=== PATIENT | female | born 1985 | race Caucasian/White ===

== ENCOUNTER 2018-01-13 09:38 | Inpatient (IN) ==
--- NOTE | 2018-01-13 09:52 | Emergency Department Note ---
Disposition Clinical Impression: Suicidal ideation Disposition: Admitted As Inpatient Condition: Good General Adult HPI - General Stated complaint: anxiety Time Seen by Provider: 01/13/18 09:40 Source: patient Mode of arrival: EMS Limitations: no limitations Nursing Notes Reviewed: Yes Vital Signs Reviewed: Yes - History of Present Illness HPI Narrative: 32-year-old female with history of PTSD, anxiety and depression presents for evaluation of suicidal ideation. Patient states she has felt this way over the past couple days. Notes that she does have a plan she wants to shoot herself. Does have guns at home. Does have family at home. Patient states that she has been on depressant medications but she feels that she does want to kill her self. States she has had homicidal ideations in the past as well. The patient has no prior attempts. Patient denies any drugs or alcohol. Patient denies any delusions or hallucinations. Denies any chest pain, fevers, shortness of breath, abdominal pain or nausea vomiting. Patient denies possibility of being . - Related Data Home Medications Medication Instructions Recorded Confirmed FLUoxetine HCl [Fluoxetine HCl] 80 mg PO DAILY 01/05/17 01/13/18 Promethazine [Phenergan] 25 mg PO Q8HR PRN 08/31/17 01/13/18 SUMAtriptan Succinate [Imitrex] 4 mg SQ AD PRN 08/31/17 01/13/18 Naproxen Sodium [Aleve] 440 mg PO DAILY 01/13/18 01/13/18 lamoTRIgine [Lamictal] 50 mg PO DAILY 01/13/18 01/13/18 Allergies Allergy/AdvReac Type Severity Reaction Status Date / Time Amoxicillin [From Augmentin] AdvReac Rash Verified 01/13/18 14:07 clavulanic acid AdvReac Rash Verified 01/13/18 14:07 [From Augmentin] codeine AdvReac Vomiting Verified 01/13/18 14:07 All systems ED: reviewed and negative except as stated. 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 Absent: respiratory distress - Cardiovascular Cardiovascular exam: Present: regular rate, normal rhythm - Abdominal Exam Abdominal exam: Present: soft, Non-Tender - Extremities Exam Extremities exam: Present: normal inspection - Expanded Lower Extremity Exam Neurovascular/Tendon exam: Present: normal capillary refill - Back Exam Back exam: Present: normal inspection - Neurological Exam Neurological exam: Present: alert, oriented X3, CN II-XII intact - Skin Skin exam: Present: warm, dry, intact, normal color Course Course Narrative: Patient seen and examined. Patient will get medically screened and evaluated by psychiatry. Disposition pending. Vital Signs Temperature 98.6 F 01/13/18 09:47 Pulse Rate 78 01/13/18 09:47 Respiratory Rate 16 01/13/18 09:47 Blood Pressure 135/104 01/13/18 09:47 O2 Sat by Pulse Oximetry 98 01/13/18 09:47 Temperature 98.6 F 01/13/18 14:50 Pulse Rate 78 01/13/18 14:50 Respiratory Rate 16 01/13/18 14:50 Blood Pressure 120/87 01/13/18 14:50 O2 Sat by Pulse Oximetry 95 01/13/18 12:13 Oxygen Delivery Oxygen Delivery Room Air Medical Decision Making - Lab Data Result diagrams: 01/13/18 10:09 01/13/18 10:09 Lab Results 01/13/18 01/13/18 01/13/18 Range/Units 09:58 09:58 09:58 WBC (4.3-11.1) K/mcL RBC (3.82-4.97) M/mcL Hgb (11.5-15.4) g/dL Hct (35.3-44.9) % MCV (83.0-100.0) fL MCH (28.0-33.3) pg MCHC (31.6-35.5) g/dL RDW (11.5-14.5) % Plt Count (140-400) K/mcL MPV (9.4-12.4) fL Immature Gran % (0-4) % Seg Neutrophils % % Lymphocytes % % Monocytes % % Eosinophils % % Basophils % % Neutrophils # (1.6-8.9) K/mcL Lymphocytes # (0.6-4.6) K/mcL Monocytes # (0.0-1.3) K/mcL Eosinophils # (0.0-0.6) K/mcL Basophils # (0.0-0.2) K/mcL Sodium (136-145) mEq/L Potassium (3.5-5.1) mEq/L Chloride (98-107) mEq/L Carbon Dioxide (23-29) mEq/L BUN (6-20) mg/dL Creatinine (0.60-1.20) mg/dL Est GFR ( Amer) (> 60) Est GFR (Non-Af Amer) (> 60) BUN/Creatinine Ratio (6-26) Glucose (70-105) mg/dL Calculated Osmolality (280-300) Calcium (8.6-10.3) mg/dL Urine Color Yellow (Yellow) Urine Clarity Clear (Clear) Urine pH 7.5 (5.0-8.0) pH Units Ur Specific [place] 1.009 L (1.010-1.025) Urine Protein Negative (Neg-Trace) mg/dL Urine Glucose (UA) Normal (Normal) mg/dL Urine Ketones Negative (Negative) mg/dL Urine Blood Negative (Negative) Urine Nitrite Negative (Negative) Urine Bilirubin Negative (Negative) Urine Urobilinogen Normal (Normal) mg/dL Ur Leukocyte Esterase Negative (Negative) Urine Test Negative (Negative) Salicylates (15.0-30.0) mg/dL Urine Opiates Screen Negative (Qczqiw=435) ng/mL Acetaminophen (10-20) mcg/mL Ur Barbiturates Screen Negative (Llpkul=351) ng/mL Ur Phencyclidine Scrn Negative (Cutoff=25) ng/mL Ur Amphetamines Screen Negative (Qhwobp=0680) ng/mL U Benzodiazepines Scrn Negative (Owxcrk=358) ng/mL Urine Cocaine Screen Negative (Cutoff= 300) ng/mL U Marijuana (THC) Screen Negative (Cutoff = 50) ng/mL Ur Drug Screen Interp See Below Ethyl Alcohol (Less than 10) mg/dL 01/13/18 01/13/18 Range/Units 10:09 10:09 WBC 11.0 (4.3-11.1) K/mcL RBC 4.75 (3.82-4.97) M/mcL Hgb 14.1 (11.5-15.4) g/dL Hct 41.2 (35.3-44.9) % MCV 86.7 (83.0-100.0) fL MCH 29.7 (28.0-33.3) pg MCHC 34.2 (31.6-35.5) g/dL RDW 13.2 (11.5-14.5) % Plt Count 229 (140-400) K/mcL MPV 10.5 (9.4-12.4) fL Immature Gran % 0.2 (0-4) % Seg Neutrophils % 70.3 % Lymphocytes % 22.9 % Monocytes % 5.3 % Eosinophils % 0.8 % Basophils % 0.5 % Neutrophils # 7.7 (1.6-8.9) K/mcL Lymphocytes # 2.5 (0.6-4.6) K/mcL Monocytes # 0.6 (0.0-1.3) K/mcL Eosinophils # 0.1 (0.0-0.6) K/mcL Basophils # 0.1 (0.0-0.2) K/mcL Sodium 138 (136-145) mEq/L Potassium 3.9 (3.5-5.1) mEq/L Chloride 107 (98-107) mEq/L Carbon Dioxide 25 (23-29) mEq/L BUN 11 (6-20) mg/dL Creatinine 0.71 (0.60-1.20) mg/dL Est GFR ( Amer) > 60 (> 60) Est GFR (Non-Af Amer) > 60 (> 60) BUN/Creatinine Ratio 15 (6-26) Glucose 98 (70-105) mg/dL Calculated Osmolality 285 (280-300) Calcium 8.7 (8.6-10.3) mg/dL Urine Color (Yellow) Urine Clarity (Clear) Urine pH (5.0-8.0) pH Units Ur Specific [place] (1.010-1.025) Urine Protein (Neg-Trace) mg/dL Urine Glucose (UA) (Normal) mg/dL Urine Ketones (Negative) mg/dL Urine Blood (Negative) Urine Nitrite (Negative) Urine Bilirubin (Negative) Urine Urobilinogen (Normal) mg/dL Ur Leukocyte Esterase (Negative) Urine Test (Negative) Salicylates < 2.5 L (15.0-30.0) mg/dL Urine Opiates Screen (Cdqmtf=028) ng/mL Acetaminophen < 10 L (10-20) mcg/mL Ur Barbiturates Screen (Ipsosg=283) ng/mL Ur Phencyclidine Scrn (Cutoff=25) ng/mL Ur Amphetamines Screen (Pspalv=9600) ng/mL U Benzodiazepines Scrn (Zznzex=046) ng/mL Urine Cocaine Screen (Cutoff= 300) ng/mL U Marijuana (THC) Screen (Cutoff = 50) ng/mL Ur Drug Screen Interp Ethyl Alcohol < 10 (Less than 10) mg/dL Attestation Statement - Attestation Attestation: I, Osbaldo Bermudez DO, examined this patient [id number] and my medical decision-making was reviewed with Dr. Noel Villanueva, Resident Physician. I agree with the documented findings, disposition and treatment plan as described except to the extent set forth below. Please see my progress notes for details.
[2018-01-13 10:20] LABS: Basophils # 0.1 K/mcL (0.0-0.2); Basophils % 0.5 %; Eosinophils # 0.1 K/mcL (0.0-0.6); Eosinophils % 0.8 %; Hematocrit 41.2 % (35.3-44.9); Hemoglobin 14.1 g/dL (11.5-15.4); Immature Granulocytes % 0.2 % (0-4); Lymphocytes # 2.5 K/mcL (0.6-4.6); Lymphocytes % 22.9 %; Mean Corpuscular HGB Conc 34.2 g/dL (31.6-35.5); Mean Corpuscular Hemoglobin 29.7 pg (28.0-33.3); Mean Corpuscular Volume 86.7 fL (83.0-100.0); Mean Platelet Volume 10.5 fL (9.4-12.4); Monocytes # 0.6 K/mcL (0.0-1.3); Monocytes % 5.3 %; Neutrophils # 7.7 K/mcL (1.6-8.9); Platelet Count 229 K/mcL (140-400); Red Blood Count 4.75 M/mcL (3.82-4.97); Red Cell Distribution Width 13.2 % (11.5-14.5); Segmented Neutrophils % 70.3 %
[2018-01-13 10:23] LABS: Bilirubin,Urine Negative (Negative); Blood,Urine Negative (Negative); Clarity,Urine Clear (Clear); Color,Urine Yellow (Yellow); Glucose,Urine (UA) Normal (Normal); Ketones,Urine Negative (Negative); Leukocyte Esterase,Urine Negative (Negative); Nitrite,Urine Negative (Negative); PH,Urine 7.5 pH Units (5.0-8.0); Protein,Urine Negative (Neg-Trace); Specific Gravity,Urine 1.009 (1.010-1.025); Urobilinogen,Urine Normal (Normal)
--- NOTE | 2018-01-13 10:34 | Emergency Department Note ---
Disposition Clinical Impression: Suicidal ideation Disposition: Admitted As Inpatient Condition: Good Referrals: NONE,PCP [Primary Care Provider] - Forms: ED Satisfaction Letter Time of Disposition: 13:40 General Adult HPI - General Chief complaint: ED Psychiatric Symptoms Stated complaint: SI/depression Time Seen by Provider: 01/13/18 09:40 Source: patient Mode of arrival: EMS Limitations: no limitations - History of Present Illness Pain Scale: 6 - Related Data Home Medications Medication Instructions Recorded Confirmed LORazepam [Ativan] 1 mg PO BID PRN 06/05/16 08/31/17 FLUoxetine HCl [Fluoxetine HCl] 80 mg PO DAILY 01/05/17 08/31/17 ARIPiprazole [Abilify] 2 mg PO HS 07/22/17 08/31/17 Promethazine [Phenergan] 25 mg PO Q8HR 08/31/17 08/31/17 SUMAtriptan Succinate [Imitrex] 4 mg SQ DAILY PRN 08/31/17 08/31/17 Previous Rx's Medication Instructions Recorded Potassium Chloride [K-Tab ER] 8 meq PO BID #10 tablet.er 08/31/17 Allergies Allergy/AdvReac Type Severity Reaction Status Date / Time Amoxicillin [From Augmentin] AdvReac Rash Verified 08/31/17 19:40 clavulanic acid AdvReac Rash Verified 08/31/17 19:40 [From Augmentin] codeine AdvReac Vomiting Verified 08/31/17 19:40 Constitutional: Denies: fever Cardiovascular: Denies: chest pain Respiratory: Denies: cough Gastrointestinal: Denies: abdominal pain, nausea, vomiting Past Medical History - Past Medical History Medical history: Reports: asthma, migraine Surgical history: Reports: other Psychiatric history: Reports: anxiety, depression, PTSD CLAIMS COUNSEL history: Reports: bilateral tubal ligation - Social History Smoking Status: Current every day smoker Smokeless Tobacco Status: No Alcohol use: Reports: none Drug use: Reports: none Physical Exam - General Limitations: no limitations General appearance: alert, in no apparent distress Course Vital Signs Temperature 98.6 F 01/13/18 09:47 Pulse Rate 78 01/13/18 09:47 Respiratory Rate 16 01/13/18 09:47 Blood Pressure 135/104 01/13/18 09:47 O2 Sat by Pulse Oximetry 98 01/13/18 09:47 Temperature 98.3 F 01/13/18 12:13 Pulse Rate 61 01/13/18 12:13 Respiratory Rate 12 01/13/18 12:13 Blood Pressure 112/76 01/13/18 12:13 O2 Sat by Pulse Oximetry 95 01/13/18 12:13 Oxygen Delivery Oxygen Delivery Room Air Medical Decision Making - Lab Data Result diagrams: 01/13/18 10:09 01/13/18 10:09 Lab Results 01/13/18 01/13/18 01/13/18 Range/Units 09:58 09:58 09:58 WBC (4.3-11.1) K/mcL RBC (3.82-4.97) M/mcL Hgb (11.5-15.4) g/dL Hct (35.3-44.9) % MCV (83.0-100.0) fL MCH (28.0-33.3) pg MCHC (31.6-35.5) g/dL RDW (11.5-14.5) % Plt Count (140-400) K/mcL MPV (9.4-12.4) fL Immature Gran % (0-4) % Seg Neutrophils % % Lymphocytes % % Monocytes % % Eosinophils % % Basophils % % Neutrophils # (1.6-8.9) K/mcL Lymphocytes # (0.6-4.6) K/mcL Monocytes # (0.0-1.3) K/mcL Eosinophils # (0.0-0.6) K/mcL Basophils # (0.0-0.2) K/mcL Sodium (136-145) mEq/L Potassium (3.5-5.1) mEq/L Chloride (98-107) mEq/L Carbon Dioxide (23-29) mEq/L BUN (6-20) mg/dL Creatinine (0.60-1.20) mg/dL Est GFR ( Amer) (> 60) Est GFR (Non-Af Amer) (> 60) BUN/Creatinine Ratio (6-26) Glucose (70-105) mg/dL Calculated Osmolality (280-300) Calcium (8.6-10.3) mg/dL Urine Color Yellow (Yellow) Urine Clarity Clear (Clear) Urine pH 7.5 (5.0-8.0) pH Units Ur Specific [place] 1.009 L (1.010-1.025) Urine Protein Negative (Neg-Trace) mg/dL Urine Glucose (UA) Normal (Normal) mg/dL Urine Ketones Negative (Negative) mg/dL Urine Blood Negative (Negative) Urine Nitrite Negative (Negative) Urine Bilirubin Negative (Negative) Urine Urobilinogen Normal (Normal) mg/dL Ur Leukocyte Esterase Negative (Negative) Urine Test Negative (Negative) Salicylates (15.0-30.0) mg/dL Urine Opiates Screen Negative (Gnhckj=621) ng/mL Acetaminophen (10-20) mcg/mL Ur Barbiturates Screen Negative (Rwwmza=630) ng/mL Ur Phencyclidine Scrn Negative (Cutoff=25) ng/mL Ur Amphetamines Screen Negative (Cvlnte=7515) ng/mL U Benzodiazepines Scrn Negative (Ffbvbv=098) ng/mL Urine Cocaine Screen Negative (Cutoff= 300) ng/mL U Marijuana (THC) Screen Negative (Cutoff = 50) ng/mL Ur Drug Screen Interp See Below Ethyl Alcohol (Less than 10) mg/dL 01/13/18 01/13/18 Range/Units 10:09 10:09 WBC 11.0 (4.3-11.1) K/mcL RBC 4.75 (3.82-4.97) M/mcL Hgb 14.1 (11.5-15.4) g/dL Hct 41.2 (35.3-44.9) % MCV 86.7 (83.0-100.0) fL MCH 29.7 (28.0-33.3) pg MCHC 34.2 (31.6-35.5) g/dL RDW 13.2 (11.5-14.5) % Plt Count 229 (140-400) K/mcL MPV 10.5 (9.4-12.4) fL Immature Gran % 0.2 (0-4) % Seg Neutrophils % 70.3 % Lymphocytes % 22.9 % Monocytes % 5.3 % Eosinophils % 0.8 % Basophils % 0.5 % Neutrophils # 7.7 (1.6-8.9) K/mcL Lymphocytes # 2.5 (0.6-4.6) K/mcL Monocytes # 0.6 (0.0-1.3) K/mcL Eosinophils # 0.1 (0.0-0.6) K/mcL Basophils # 0.1 (0.0-0.2) K/mcL Sodium 138 (136-145) mEq/L Potassium 3.9 (3.5-5.1) mEq/L Chloride 107 (98-107) mEq/L Carbon Dioxide 25 (23-29) mEq/L BUN 11 (6-20) mg/dL Creatinine 0.71 (0.60-1.20) mg/dL Est GFR ( Amer) > 60 (> 60) Est GFR (Non-Af Amer) > 60 (> 60) BUN/Creatinine Ratio 15 (6-26) Glucose 98 (70-105) mg/dL Calculated Osmolality 285 (280-300) Calcium 8.7 (8.6-10.3) mg/dL Urine Color (Yellow) Urine Clarity (Clear) Urine pH (5.0-8.0) pH Units Ur Specific [place] (1.010-1.025) Urine Protein (Neg-Trace) mg/dL Urine Glucose (UA) (Normal) mg/dL Urine Ketones (Negative) mg/dL Urine Blood (Negative) Urine Nitrite (Negative) Urine Bilirubin (Negative) Urine Urobilinogen (Normal) mg/dL Ur Leukocyte Esterase (Negative) Urine Test (Negative) Salicylates < 2.5 L (15.0-30.0) mg/dL Urine Opiates Screen (Gbmbks=167) ng/mL Acetaminophen < 10 L (10-20) mcg/mL Ur Barbiturates Screen (Sebywl=429) ng/mL Ur Phencyclidine Scrn (Cutoff=25) ng/mL Ur Amphetamines Screen (Cnapqo=9867) ng/mL U Benzodiazepines Scrn (Sjlxus=281) ng/mL Urine Cocaine Screen (Cutoff= 300) ng/mL U Marijuana (THC) Screen (Cutoff = 50) ng/mL Ur Drug Screen Interp Ethyl Alcohol < 10 (Less than 10) mg/dL Attestation Statement - Attestation Attestation: I, Osbaldo Bermudez DO, examined this patient [id number] and my medical decision-making was reviewed with Dr. Noel Villanueva, Resident Physician. I agree with the documented findings, disposition and treatment plan as described except to the extent set forth below. Please see my progress notes for details. 32-year-old female presents emergency room from her psychiatrist's office today. She is recommended come over here for medical evaluation possible placement. Patient has had significant progression of her depression with suicidal ideations. She does have an active plan at this time which will not disclose that during my evaluation. Patient was seen this morning for reevaluation after being started on lamotrigine. She has not had any symptomatic relief with the medication feels that she is progressively getting worse. She denies any chest pain shortness of breath headache vision changes nausea vomiting or diarrhea. No fevers no chills. No other trauma or injuries. She has not ingested anything or made any attempts to hurt herself yet but she has been thinking about it more often here lately. Medical clearance will be completed and patient will be evaluated by psychiatric team and will most likely require admission. Patient will have pink slip reviewed that was signed at the psychiatric office this morning. We will continue to monitor here until treatment course is established. See detailed documentation the physical exam, medical intervention, medical decision-making and disposition in the resident physician's note. No critical care applied the patient's treatment course at this time. [id number] was contacted for patient evaluation [id number] Patient will be accepted to the psychiatric facility for evaluation. Placement has been established. No other recommendations or concerns. Patient is otherwise clinically stable
[2018-01-13 10:40] LABS: Amphetamine Screen,Urine Negative ng/mL (Cutoff=1000); Barbiturate Screen,Urine Negative ng/mL (Cutoff=200); Benzodiazepines Screen,Urine Negative ng/mL (Cutoff=200); Cannabinoid Screen,Urine Negative ng/mL (Cutoff = 50); Cocaine Screen,Urine Negative ng/mL (Cutoff= 300); Opiate Screen,Urine Negative ng/mL (Cutoff=300); Phencyclidine Screen,Urine Negative ng/mL (Cutoff=25)
[2018-01-13 10:49] LABS: Acetaminophen < 10 mcg/mL (10-20); BUN/Creatinine Ratio 15 (6-26); Blood Urea Nitrogen 11 mg/dL (6-20); Calcium 8.7 mg/dL (8.6-10.3); Carbon Dioxide 25 mEq/L (23-29); Chloride 107 mEq/L (98-107); Ethanol < 10 mg/dL (Less than 10); Glucose 98 mg/dL (70-105); Osmolality,Calculated 285 (280-300); Potassium 3.9 mEq/L (3.5-5.1); Salicylate < 2.5 mg/dL (15.0-30.0); Sodium 138 mEq/L (136-145); eGFR For Non-African Americans > 60 (> 60)
[2018-01-13] MEDS ORDERED: *HR* LORazepam 1 MG TABLET PO ONE (11:53)
[2018-01-13] MEDS ORDERED: Ibuprofen 400 MG TABLET PO PRN (18:04)
[2018-01-13] MEDS ORDERED: Haloperidol Lactate 5 MG/ML VIAL IM PRN (18:04)
[2018-01-13] MEDS ORDERED: *HR* LORazepam 1 MG TABLET PO PRN (18:04)
[2018-01-13] MEDS ORDERED: traZODone 50 MG TABLET PO PRN (18:04)
[2018-01-13] MEDS ORDERED: MOM Conc 10 ML UD.LIQ PO PRN (18:04)
[2018-01-13] MEDS: Nicotine 14 MG PATCH.TD24 TD SCH (18:04)
[2018-01-13] MEDS ORDERED: hydrOXYzine pamoate 25 MG CAPSULE PO PRN (18:04)
[2018-01-13] MEDS ORDERED: Mag Hydrox/Al Hydrox/Simeth 30 ML UDC PO PRN (18:04)
[2018-01-13] MEDS ORDERED: *HR* LORazepam 2 MG/ML VIAL IM PRN (18:04)
[2018-01-13] MEDS ORDERED: SUMAtriptan 6 MG/0.5 ML SQ PRN (18:07)
[2018-01-14] MEDS: FLUoxetine 20 MG CAPSULE PO SCH (08:59)
[2018-01-14] MEDS: Nicotine 14 MG PATCH.TD24 TD SCH (09:00)
[2018-01-14] MEDS ORDERED: lamoTRIgine 25 MG TABLET PO SCH (09:00)
--- NOTE | 2018-01-14 12:13 | Psychiatry History & Physical ---
Date of Encounter: 01/14/18 Time of Encounter: 11:30 History of Present Illness Patient Stated Chief Complaint: Suicidal ideation Medicare Admission Attestation: For traditional Medicare patients the provided hospital inpatient services are reasonable and necessary and in the case of services not specified as inpatient -only under 42 CFR 419.22 (n), that they are appropriately provided as inpatient services in accordance 42 CFR 412.3. For [facility] the patient may reasonably be expected to be discharged or transferred to a hospital within 96 hours after admission to the Critical [facility]. Admitted From: Emergency Dept History of Present Illness: Ms. Burr is a 32 year old female admitted from the emergency department for depression and anxiety and suicidal ideation. Patient was referred for admission from Dr. Alford's office. Patient was having suicidal thoughts and thoughts about using a gun to shoot herself. Patient had no previous psychiatric hospitalization and has been seen at the counseling center for about a year for treatment of major depression and PTSD and anxiety. Patient had no previous suicide attempts and she has been stressed out by multiple stressors including application for disability due to work related injury. Patient reports feeling overwhelmed when she has to do multitasks, she is trying to be a good mother and take care of her children and help them with homework. UDS was negative. She reports consuming some caffeine on a daily basis. Past Med Surg Social Fam HX - Past Medical History Medical history: asthma, migraine - Past Psychiatric History Psychiatric history: Reports: anxiety, depression, PTSD. Denies: previous psychiatric hospitalization - Past Surgical History Surgical History: other - Social History Smoking Status: Current every day smoker Smokeless Tobacco Status: No Alcohol use: none Drug use: none - Family History Paternal Grandfather Adopted: [place]: [place] Family Member Ethnicity: Non- Living Status: Age at : 71 Cause of : colon cancer Hx Family Cardiac Disorders: Yes (HTN) Hx Family Respiratory Disorders: No Hx Family Cancer: Yes (colon) Hx Family GI Disorders: Yes (colon cancer) Hx Family Genitourinary Disorders: No Hx Family Endocrine Disorder: Yes (Diabetes) Hx Family Musculoskeletal Disorders: No Hx Family Neuromuscular Disorders: No Hx Family Neurologic Disorders: No Hx Family HEENT Disorders: No Hx Family Autoimmune Disorders: No Hx Family Reproductive Disorders: No Hx Family Psychosocial Disorders: No Hx Family Medical Disorders: No Medications & Allergies FLUoxetine HCl [Fluoxetine HCl] 80 mg PO DAILY 01/05/17 [History] Promethazine [Phenergan] 25 mg PO Q8HR PRN 08/31/17 [History] SUMAtriptan Succinate [Imitrex] 4 mg SQ AD PRN 08/31/17 [History] Naproxen Sodium [Aleve] 440 mg PO DAILY 01/13/18 [History] lamoTRIgine [Lamictal] 50 mg PO DAILY 01/13/18 [History] 3 Allergy/AdvReac Type Severity Reaction Status Date / Time Amoxicillin [From Augmentin] AdvReac Rash Verified 01/13/18 14:07 clavulanic acid AdvReac Rash Verified 01/13/18 14:07 [From Augmentin] codeine AdvReac Vomiting Verified 01/13/18 14:07 Review of Systems Psychiatric: Reports: depression, anxiety, suicidal ideation, irritability Exam - HEENT Head exam IM: Present: atraumatic Eye exam IM: Present: EOMI, normal appearance, PERRL ENT exam IM: Present: normal exam - Neurological Neurological exam: Present: CN II-XII intact - Respiratory Respiratory exam IM: Present: CTAB - GI/Abdominal GI/Abdominal exam IM: Present: normal bowel sounds, soft. Absent: tenderness - Extremities Extremities exam IM: Present: full ROM - Skin Skin exam IM: Present: dry, warm - Constitutional Vitals: Temp Pulse Resp BP Pulse Ox 97.8 F 76 16 116/88 95 01/14/18 09:00 01/14/18 09:00 01/14/18 09:00 01/14/18 09:00 01/13/18 12:13 General appearance: age & developmentally appropriate, well-groomed, well- nourished, obese - Musculoskeletal Gait: normal Station: relaxed Strength & Tone: normal for patient - Psychiatric Patient Orientation: Yes Person, Yes Time, Yes Place Level of alertness: Alert Behavior: calm, cooperative, anxious Psychomotor activity: Normal Eye Contact: Maintains Eye Contact Mood Description: Euthymic/stable, Anxious, Labile Affect description: congruent with mood, labile Speech Volume: Normal Speech pattern: normal rate, normal rhythm, normal tone, fluent, spontaneous Language & Vocabulary: consistent with education Thought Process: Linear, Goal Oriented Thought Content: Yes Suicidal ideation, No Homicidal ideation, No Overt delusions Perceptual Disturbances: No Auditory hallucinations, No Visual hallucinations Attention Span Ability: Capable of Focused Attention Memory Description: Grossly Intact Patient Reliability: Reliable Historian Fund of knowledge: Yes abstraction ability, Yes average, Yes aware of current events Intelligence Estimate: Average Judgment: Limited Insight: Partial Results - Labs Labs: Laboratory Last Values WBC 11.0 K/mcL (4.3-11.1) 01/13/18 10:09 RBC 4.75 M/mcL (3.82-4.97) 01/13/18 10:09 Hgb 14.1 g/dL (11.5-15.4) 01/13/18 10:09 Hct 41.2 % (35.3-44.9) 01/13/18 10:09 MCV 86.7 fL (83.0-100.0) 01/13/18 10:09 MCH 29.7 pg (28.0-33.3) 01/13/18 10:09 MCHC 34.2 g/dL (31.6-35.5) 01/13/18 10:09 RDW 13.2 % (11.5-14.5) 01/13/18 10:09 Plt Count 229 K/mcL (140-400) 01/13/18 10:09 MPV 10.5 fL (9.4-12.4) 01/13/18 10:09 Immature Gran % 0.2 % (0-4) 01/13/18 10:09 Seg Neutrophils % 70.3 % 01/13/18 10:09 Lymphocytes % 22.9 % 01/13/18 10:09 Monocytes % 5.3 % 01/13/18 10:09 Eosinophils % 0.8 % 01/13/18 10:09 Basophils % 0.5 % 01/13/18 10:09 Neutrophils # 7.7 K/mcL (1.6-8.9) 01/13/18 10:09 Lymphocytes # 2.5 K/mcL (0.6-4.6) 01/13/18 10:09 Monocytes # 0.6 K/mcL (0.0-1.3) 01/13/18 10:09 Eosinophils # 0.1 K/mcL (0.0-0.6) 01/13/18 10:09 Basophils # 0.1 K/mcL (0.0-0.2) 01/13/18 10:09 Sodium 138 mEq/L (136-145) 01/13/18 10:09 Potassium 3.9 mEq/L (3.5-5.1) 01/13/18 10:09 Chloride 107 mEq/L (98-107) 01/13/18 10:09 Carbon Dioxide 25 mEq/L (23-29) 01/13/18 10:09 BUN 11 mg/dL (6-20) 01/13/18 10:09 Creatinine 0.71 mg/dL (0.60-1.20) 01/13/18 10:09 Est GFR ( Amer) > 60 (> 60) 01/13/18 10:09 Est GFR (Non-Af Amer) > 60 (> 60) 01/13/18 10:09 BUN/Creatinine Ratio 15 (6-26) 01/13/18 10:09 Glucose 98 mg/dL (70-105) 01/13/18 10:09 Calculated Osmolality 285 (280-300) 01/13/18 10:09 Calcium 8.7 mg/dL (8.6-10.3) 01/13/18 10:09 Urine Color Yellow (Yellow) 01/13/18 09:58 Urine Clarity Clear (Clear) 01/13/18 09:58 Urine pH 7.5 pH Units (5.0-8.0) 01/13/18 09:58 Ur Specific [place] 1.009 (1.010-1.025) L 01/13/18 09:58 Urine Protein Negative mg/dL (Neg-Trace) 01/13/18 09:58 Urine Glucose (UA) Normal mg/dL (Normal) 01/13/18 09:58 Urine Ketones Negative mg/dL (Negative) 01/13/18 09:58 Urine Blood Negative (Negative) 01/13/18 09:58 Urine Nitrite Negative (Negative) 01/13/18 09:58 Urine Bilirubin Negative (Negative) 01/13/18 09:58 Urine Urobilinogen Normal mg/dL (Normal) 01/13/18 09:58 Ur Leukocyte Esterase Negative (Negative) 01/13/18 09:58 Urine Test Negative (Negative) 01/13/18 09:58 Salicylates < 2.5 mg/dL (15.0-30.0) L 01/13/18 10:09 Urine Opiates Screen Negative ng/mL (Ecnxss=154) 01/13/18 09:58 Acetaminophen < 10 mcg/mL (10-20) L 01/13/18 10:09 Ur Barbiturates Screen Negative ng/mL (Dwynrn=872) 01/13/18 09:58 Ur Phencyclidine Scrn Negative ng/mL (Cutoff=25) 01/13/18 09:58 Ur Amphetamines Screen Negative ng/mL (Aozuhm=4141) 01/13/18 09:58 U Benzodiazepines Scrn Negative ng/mL (Pidnpq=402) 01/13/18 09:58 Urine Cocaine Screen Negative ng/mL (Cutoff= 300) 01/13/18 09:58 U Marijuana (THC) Screen Negative ng/mL (Cutoff = 50) 01/13/18 09:58 Ur Drug Screen Interp See Below 01/13/18 09:58 Ethyl Alcohol < 10 mg/dL (Less than 10) 01/13/18 10:09 Assessment and Plan (1) Severe recurrent major depression without psychotic features Current visit: Yes Status: Acute Plan: Admit inpatient for safety and stabilization, Close observation, Suicide Precautions per unit protocol, Encourage participation in unit milieu, Group Therapy, Monitor sleep, Monitor appetite Additional Plan: Increase Lamictal to 75 mg daily Risks, benefits, side effects, alternatives discussed w/pt: Yes Patient agreeable to treatment: Yes Estimated Length of Stay (Days): 5 (2) Suicidal ideation Current visit: Yes Status: Acute Plan: Admit inpatient for safety and stabilization, Close observation, Suicide Precautions per unit protocol, Encourage participation in unit milieu, Group Therapy, Monitor sleep, Monitor appetite
[2018-01-14] MEDS ORDERED: lamoTRIgine 25 MG TABLET PO ONE (14:24)
[2018-01-15 08:39] VITALS: BP 121/88
[2018-01-15] MEDS: FLUoxetine 20 MG CAPSULE PO SCH (08:46)
[2018-01-15] MEDS: Nicotine 14 MG PATCH.TD24 TD SCH (08:48)
[2018-01-15] MEDS ORDERED: lamoTRIgine 25 MG TABLET PO SCH (09:00)
--- NOTE | 2018-01-15 11:42 | Discharge Summary ---
Date of Encounter: 01/15/18 Time of Encounter: 11:33 Diagnosis - Discharge Diagnosis (1) Severe recurrent major depression without psychotic features Status: Acute (2) Suicidal ideation Status: Acute Medications - Discharge Medications Prescriptions: lamoTRIgine [Lamictal] 75 mg PO DAILY #90 tablet FLUoxetine HCl [Fluoxetine HCl] 80 mg PO DAILY 01/05/17 [History] Promethazine [Phenergan] 25 mg PO Q8HR PRN 08/31/17 [History] SUMAtriptan Succinate [Imitrex] 4 mg SQ AD PRN 08/31/17 [History] Naproxen Sodium [Aleve] 440 mg PO DAILY 01/13/18 [History] lamoTRIgine [Lamictal] 75 mg PO DAILY #90 tablet 01/15/18 [Rx] 3 Allergy/AdvReac Type Severity Reaction Status Date / Time Amoxicillin [From Augmentin] AdvReac Rash Verified 01/13/18 14:07 clavulanic acid AdvReac Rash Verified 01/13/18 14:07 [From Augmentin] codeine AdvReac Vomiting Verified 01/13/18 14:07 Provider Date of admission: 01/13/18 14:32 Primary care physician: PCP NONE Discharging clinician: [facility] Exam - Constitutional Vitals: Temp Pulse Resp BP Pulse Ox 98.5 F 80 16 121/88 95 01/15/18 08:37 01/15/18 08:37 01/15/18 08:37 01/15/18 08:37 01/13/18 12:13 General appearance: age & developmentally appropriate, well-groomed, well- nourished, obese - Musculoskeletal Gait: normal Station: relaxed Strength & Tone: normal for patient - Psychiatric Patient Orientation: Yes Person, Yes Time, Yes Place Level of alertness: Alert Behavior: calm, cooperative, talkative Psychomotor activity: Normal Eye Contact: Maintains Eye Contact Mood Description: Euthymic/stable Affect description: congruent with mood, full range Speech Volume: Normal Speech pattern: normal rate, normal rhythm, normal tone, fluent, spontaneous Language & Vocabulary: consistent with education Thought Process: Linear, Goal Oriented Thought Content: No Suicidal ideation, No Homicidal ideation, No Overt delusions Perceptual Disturbances: No Auditory hallucinations, No Visual hallucinations Attention Span Ability: Capable of Focused Attention Memory Description: Grossly Intact Patient Reliability: Reliable Historian Fund of knowledge: Yes abstraction ability, Yes aware of current events Intelligence Estimate: Average Judgment: Limited Insight: Partial Hospital Course Hospital course: Ms. uBrr is a 32 year old female admitted for depression and suicidal ideation. For details of the admission please see H&P On the units patient medication were reviewed and Lamictal was increased to 75 mg daily. Patient reported improved sleep, denies suicidal ideation. Participated in groups and activities. She was medication compliant and cooperative. She shared her history was staff appropriately. Her discharge plans were reviewed by social work including counseling and medication. On discharge patient was medically stable nonsuicidal and future oriented. Discharged in stable condition. - Time Spent with Patient Total time spent providing and/or coordinating discharge services: Greater than 30 minutes Assessment and Plan - Patient/Caregiver Discharge Instructions Activity: resume usual activities as tolerated Diet: regular diet - Follow up Plan Follow up with: [facility] [Outside] - 01/20/18 8:20 am (The above appointment is with Dr. Gan for outpatient psychiatric assessment and medication management services. You will also see Irene Sims for outpatient mental health counseling services on 02/10/2018 at 11:00 AM. Please arrive 10 minutes early to all appointments to complete the check-in process. Please bring your insurance card (or [facility] award letter) and photo ID. If you are unable to keep any scheduled appointment, 24 hour business notice of cancellation is expected. The above appointment(s) reflects first availability. You may contact the office regularly to check for cancellations that may allow you to be seen sooner. ) Functional capacity at discharge: independent ambulation Overall status at discharge: Stable Disposition: Home, Self-Care Quality - Multiple Antipsychotics Patient discharged on 2 or more antipsychotic medications: No Procedures - Procedures Procedures: Medication Management, Crisis Stabilization, Supportive Therapy, Group Therapy, Psychoeducational Therapy
== END 2018-01-15 13:10 | disposition home or self-care (01) | DRG 885 ==
LOC: EMEROOARM 09:38 → 1ANU 14:32
PROVIDERS: ADMIT Psychiatry & Neurology Psychiatry; ATTEND Psychiatry & Neurology Psychiatry